=== PATIENT | female | born 1945 | race Caucasian/White ===

== ENCOUNTER 2024-08-20 16:10 | Emergency (ER) | payer SELFPAY ==
[2024-08-20 16:12] VITALS: BP 195/90
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
[2024-08-20] MEDS: MOTRIN 400 MG PO (19:57)
[2024-08-20 20:00] VITALS: BP 179/85
== END 2024-08-20 21:47 | disposition home or self-care (01) ==
LOC: EMR 16:10
PROVIDERS: EMERGENCY PHYSICIAN Emergency Medicine; FAMILY PHYSICIAN Family Medicine
DX: S22.080A Wedge compression fracture of T11-T12 vertebra, initial encounter for closed fracture (principal); V89.2XXA Person injured in unspecified motor-vehicle accident, traffic, initial encounter; Y92.410 Unspecified street and highway as the place of occurrence of the external cause
CPT/HCPCS: 99284; 70450; 72125; 72128; 72131

== ENCOUNTER → 2024-09-05 09:53 | Outpatient (REF) | payer MEDICARE, SELFPAY | LOC: RAD 09:53 | PROVIDERS: ATTENDING PHYSICIAN Family Medicine | DX: R07.89 Other chest pain (principal); R10.84 Generalized abdominal pain; M25.561 Pain in right knee | CPT/HCPCS: 71250; 73564; 74176 ==

== ENCOUNTER 2024-10-02 11:11 | Emergency (ER) | payer MEDICARE, SELFPAY ==
[2024-10-02 11:20] VITALS: BP 141/72
[2024-10-02 12:02] VITALS: BMI 25.8
[2024-10-02 12:09] VITALS: BP 122/62
[2024-10-02 12:25] LABS: Hematocrit 34.2 % (37.0-47.0); Hemoglobin 11.4 g/dL (12.0-16.0); Mean Corp Hgb Conc. 33.3 g/dL (33.0-37.0); Mean Corpuscular Volume 90.5 fL (81.0-99.0); Nucleated Red Blood Cells % 0 %; Platelet Count 182 10^3/uL (130-400); Red Cell Dist. Width 13.3 % (11.5-14.5); Urine Character Clear (Clear)
[2024-10-02 12:35] LABS: Urine Red Blood Cell 0-2 /HPF (0-2)
[2024-10-02] MEDS: NSS 1000 IV (12:57)
[2024-10-02 13:05] LABS: ALT (SGPT) 43 U/L (0-35); AST (SGOT) 35 U/L (14-36); Albumin 4.2 g/dl (3.5-5.0); Alkaline Phosphatase 93 U/L (38-126); Blood Urea Nitrogen 14 mg/dl (7-17); Calcium 8.7 mg/dl (8.4-10.2); Carbon Dioxide 25 mmol/L (22-30); Chloride 105 mmol/L (98-107); Estimated Creatinine Clearance 72 ml/min; Glucose 113 mg/dl (70-99); Lipase 112 U/L (23-300); Potassium 4.0 mmol/L (3.5-5.1); Sodium 137 mmol/L (135-145); Total Protein 7.0 g/dl (6.3-8.2); eGFR > 60.00
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
[2024-10-02] MEDS: FLAGYL 500 MG PO (15:03)
[2024-10-02] MEDS: LEVAQUIN 750 MG PO (15:04)
== END 2024-10-02 15:16 | disposition home or self-care (01) ==
LOC: EMR 11:11
PROVIDERS: Physician Assistant; EMERGENCY PHYSICIAN Emergency Medicine; FAMILY PHYSICIAN Family Medicine
DX: K57.32 Diverticulitis of large intestine without perforation or abscess without bleeding (principal); E78.00 Pure hypercholesterolemia, unspecified; Z88.0 Allergy status to penicillin; N28.1 Cyst of kidney, acquired; N83.8 Other noninflammatory disorders of ovary, fallopian tube and broad ligament
CPT/HCPCS: 99284; 74177; 80053; 81003; 81015; 83605; 83690; 85025; 87086; Q9967

== ENCOUNTER → 2024-11-06 17:25 | Outpatient (REF) | payer MEDICARE, SELFPAY | LOC: PAVMRI 17:25 | PROVIDERS: ATTENDING PHYSICIAN Orthopaedic Surgery Sports Medicine; FAMILY PHYSICIAN Family Medicine | DX: M54.16 Radiculopathy, lumbar region (principal) | CPT/HCPCS: 72146 ==

== ENCOUNTER 2024-12-11 10:59 | Outpatient (RCR) | payer MEDICARE, SELFPAY | END 2024-12-11 23:59 | disposition home or self-care (01) | LOC: RPT 10:59 | PROVIDERS: ATTENDING PHYSICIAN Student in an Organized Health Care Education/Training Program; FAMILY PHYSICIAN Family Medicine | DX: M54.2 Cervicalgia (principal); M54.6 Pain in thoracic spine; M54.51 Vertebrogenic low back pain; F07.81 Postconcussional syndrome; Z73.6 Limitation of activities due to disability; R26.2 Difficulty in walking, not elsewhere classified; S22.089D Unspecified fracture of T11-T12 vertebra, subsequent encounter for fracture with routine healing; R26.81 Unsteadiness on feet; V49.40XD Driver injured in collision with unspecified motor vehicles in traffic accident, subsequent encounter | CPT/HCPCS: 97110; 97112; 97163; 97530 ==

== ENCOUNTER 2025-01-06 09:36 | Outpatient (RCR) | payer MEDICARE, SELFPAY | END 2025-01-06 23:59 | disposition home or self-care (01) | LOC: RPT 09:36 | PROVIDERS: ATTENDING PHYSICIAN Student in an Organized Health Care Education/Training Program; FAMILY PHYSICIAN Family Medicine | DX: M54.2 Cervicalgia (principal); M54.6 Pain in thoracic spine; M54.51 Vertebrogenic low back pain; F07.81 Postconcussional syndrome; Z73.6 Limitation of activities due to disability; R26.2 Difficulty in walking, not elsewhere classified; S22.089D Unspecified fracture of T11-T12 vertebra, subsequent encounter for fracture with routine healing; R26.81 Unsteadiness on feet; V49.40XD Driver injured in collision with unspecified motor vehicles in traffic accident, subsequent encounter | CPT/HCPCS: 97110; 97112; 97530 ==

== ENCOUNTER → 2025-01-07 07:09 | Outpatient (REF) | payer OTHER, MEDICARE, SELFPAY | LOC: MRI 07:09 | PROVIDERS: ATTENDING PHYSICIAN Orthopaedic Surgery Sports Medicine; FAMILY PHYSICIAN Family Medicine | DX: M54.16 Radiculopathy, lumbar region (principal) | CPT/HCPCS: 72148 ==

== ENCOUNTER 2025-01-22 06:44 | Outpatient (RCR) | payer MEDICARE, SELFPAY | END 2025-01-26 12:09 | disposition home or self-care (01) | LOC: RPT 06:44 | PROVIDERS: ATTENDING PHYSICIAN Student in an Organized Health Care Education/Training Program; FAMILY PHYSICIAN Family Medicine | DX: M54.2 Cervicalgia (principal); M54.6 Pain in thoracic spine; M54.51 Vertebrogenic low back pain; F07.81 Postconcussional syndrome; Z73.6 Limitation of activities due to disability; R26.2 Difficulty in walking, not elsewhere classified; S22.089D Unspecified fracture of T11-T12 vertebra, subsequent encounter for fracture with routine healing; R26.81 Unsteadiness on feet; V49.40XD Driver injured in collision with unspecified motor vehicles in traffic accident, subsequent encounter | CPT/HCPCS: 97110; 97112; 97530 ==